=== PATIENT | female | born 1995 | race Caucasian/White ===

== ENCOUNTER 2019-08-23 13:42 | Emergency (ER) | payer OTHER, SELFPAY ==
[2019-08-23 13:53] VITALS: BP 129/92; PULSE 87; RESP 20; TEMP 37.3; O2SAT 100
--- NOTE | 2019-08-23 13:55 | ED.ABDPAIN ---
HPI - Abdominal Pain General Chief Complaint: Abdominal Pain Stated Complaint: LUQ PAIN Time Seen by Provider: 08/23/19 13:55 Source: patient Mode of arrival: ambulatory Limitations: no limitations History of Present Illness HPI narrative: A 23 y/o female presents to the ED with c/o sharp left flank pain. Pt states that the left flank pain started this morning and has been constant since. She notes that on 08/18/19 she woke up nauseous and had urinary frequency, urinary retention, and dysuria. Pt adds that she called [facility] and was prescribed a 3 day antibiotic. She expresses that the antibiotics may have given her a yeast infection. Pt reports diaphoresis, but denies vomiting, vaginal discharge, and vaginal pruritus. She has a PMHx of anxiety. MD elicited complaint: flank pain (Left) Onset (ago): hour(s) (This morning) Pain Consistency: constant Location: L flank Quality: sharp Associated symptoms: nausea, dysuria and other (Urinary frequency, urinary retention, diaphoresis) Related Data Allergies Allergy/AdvReac Type Severity Reaction Status Date / Time No Known Allergies Allergy Verified 08/23/19 13:57 Review of Systems Review of Systems: All systems reviewed & are unremarkable except as noted in HPI and below Constitutional: Constitutional: Reports other (Diaphoresis) Gastrointestinal: Gastrointestinal: Reports nausea and Denies vomiting Genitourinary: Genitourinary: Reports nocturia, Denies genital pruritis, Reports dysuria, Reports flank pain (Left), Denies vaginal discharge and Reports other (Urinary retention) PMFSH Past Medical History Medical History (Updated 08/23/19 @ 15:39 by Moshe Mcgowan MD) Anxiety Surgical History Surgical History (Updated 08/23/19 @ 14:14 by Cinthya Sheth) No pertinent past surgical history Social History Social History Smoking status: Never smoker Alcohol intake: current Exam Narrative: Exam Narrative: General appearance: Well-developed, well-nourished Skin: Normal color Head: Normocephalic, nontraumatic Eyes: Clear conjunctiva ENT: Oropharynx normal, ears normal, nose normal Neck: Supple, nontender Chest and respiratory: Airway patent, no respiratory distress, no accessory muscle use Heart: Regular rate/rhythm Abdomen: Soft, slight tenderness left flank, no bruises, swelling or rash, no organomegaly, quiet bowel sounds Vascular: Normal peripheral pulses, normal capillary refill. Musculoskeletal: Normal range of motion, nontender back Neurologic: Alert and oriented ?3, [employer] is normal as tested, no gross motor deficit Course Course Emergency Course: Stable Vital Signs Vital signs: Vital Signs Temperature 37.3 C 08/23/19 13:53 Pulse Rate 87 08/23/19 13:53 Respiratory Rate 20 08/23/19 13:53 Blood Pressure 129/92 H 08/23/19 13:53 Pulse Oximetry 100 08/23/19 13:53 Temperature 37.3 C 08/23/19 13:53 Pulse Rate 87 08/23/19 13:53 Respiratory Rate 20 08/23/19 13:53 Blood Pressure 129/92 H 08/23/19 13:53 Pulse Oximetry 100 08/23/19 13:53 MDM - Abdominal Pain MDM Narrative Medical decision making narrative: Urinary tract infection, pyelonephritis, PID is my differential diagnosis. Labs, UA ordered. Further plan to follow Differential Diagnosis Differential diagnosis: Likely constipation and other (Urinary tract infection, pyelonephritis, PID) Lab Data Result diagrams: 08/23/19 14:58 08/23/19 14:58 Labs: Lab Results 08/23/19 08/23/19 08/23/19 Range/Units 14:02 14:58 14:58 WBC 9.9 (4.5-10.0) K/mm3 RBC 4.76 (4.2-5.4) M/mm3 Hgb 13.9 (12.0-15.0) g/dL Hct
[2019-08-23 14:37] LABS: Add Urine Microscopic? YES; Appearance Urine Cloudy (Clear); Bacteria Urine 2+ /hpf; Bilirubin Urine Negative (Negative); Blood Urine 2+ (Negative); Color Urine Yellow (Yellow); Glucose Urine UA Negative (Negative); Ketones Urine Negative (Negative); Leukocyte Esterase Ur 3+ LEU/UL (Negative); Mucus Urine Rare /lpf; Nitrate Urine Negative (Negative); Protein Urine 1+ mg/dL (Negative); Specific Grav Ur 1.005 (1.001-1.035); Squamous Epithelial Cell Urine Rare /hpf (Few); Urobilinogen Urine Negative mg/dL (<2.0); WBC Urine >75 /hpf
[2019-08-23 15:03] LABS: Basophils Absolute Auto 0.1 K/mm3 (0.0-0.1); Basophils Percent Auto 0.7 % (0.2-1.2); Eosinophils Absolute Auto 0.2 K/mm3 (0-0.3); Eosinophils Percent Auto 2.1 % (0-4.4); Hematocrit 42.9 % (37.0-47.0); Hemoglobin 13.9 g/dL (12.0-15.0); Immature Granulocyte Absolute 0.02 K/mm3 (0.00-0.031); Immature Granulocyte Percent A 0.2 % (0-0.5); Lymphocytes Absolute Auto 3.02 K/mm3 (0.9-3.2); Lymphocytes Percent Auto 30.5 % (18.3-44.2); Mean Corpuscular HGB Conc 32.4 g/dl (32-36); Mean Corpuscular Hemoglobin 29.2 pg (26-34); Mean Corpuscular Volume 90.1 fl (80-100); Mean Platelet Volume 10.9 fl (7.4-10.4); Monocytes Absolute Auto 0.8 K/mm3 (0.1-0.6); Monocytes Percent Auto 7.6 % (2.6-8.5); Neutrophils Absolute Auto 5.8 K/mm3 (1.3-6.7); Neutrophils Percent Auto 58.9 % (45.5-73.1); Platelet Count Result 311 k/mm3 (150-375); Red Blood Count 4.76 M/mm3 (4.2-5.4); Red Cell Distribution Width 12.3 % (11.5-14.5); White Blood Count 9.9 K/mm3 (4.5-10.0)
[2019-08-23 15:15] LABS: Alanine Aminotransferase 21 U/L (4-35); Albumin Level 4.6 g/dL (3.5-5.1); Alkaline Phosphatase 57 U/L (38-126); Aspartate Amino Transferase 32 U/L (14-36); Bilirubin,Total 0.6 mg/dL (0.2-1.3); Blood Urea Nitrogen 9 mg/dL (7-17); Calcium 9.7 mg/dL (8.4-10.2); Carbon Dioxide 23 mmol/L (22-30); Chloride 99 mmol/L (98-107); Estimated CRCL calculation 97 ml/min; Estimated Glomerular Filt Rate > 60; Glucose 97 mg/dL (65-105); Lipase 45 U/L (23-300); Potassium 3.6 mmol/L (3.4-5.0); Sodium 136 mmol/L (137-145)
[2019-08-23 15:58] VITALS: BP 124/80; PULSE 80; RESP 18; TEMP 37.1; O2SAT 99
--- NOTE | 2019-08-27 20:21 | PC.NURSE ---
Addendum entered by Carlos Loyola RN 08/27/19 20:21: Pt received IV antibiotics per order and infusion completed 30 min after initiation. Original Note: LATE ENTRY This note is being entered to document information to the patient's record. The following information was omitted on [], by DOMINIC Gonzalez.
== END 2019-08-23 15:59 | disposition home or self-care (01) ==
PROVIDERS: Emergency Provider Emergency Medicine; PCP Family Medicine
DX: N39.0 Urinary tract infection, site not specified (principal)
CPT/HCPCS: 36415; 80053; 81001; 81025; 83690; 85025; 87077; 87086; 87088; 87186; 96365; 99284; J0696